=== PATIENT | female | born 1985 | race African-American/Black ===

== ENCOUNTER 2021-08-16 03:04 | Emergency (ER) | payer MEDICAID ==
[~2021-08-16] VITALS: Ht 180.3 cm; Wt 117.0 kg
[2021-08-16 03:44] VITALS: BP 156/105
== END 2021-08-16 03:30 | disposition left against medical advice (07) ==
LOC: ER 03:04
DX: R07.9 Chest pain, unspecified (principal); Z53.21 Procedure and treatment not carried out due to patient leaving prior to being seen by health care provider
CPT/HCPCS: 93005